=== PATIENT | male | born 1965 | race Hispanic/Latino ===

== ENCOUNTER 2020-01-09 11:49 | Emergency (ER) | payer OTHER, SELFPAY ==
[2020-01-09] MEDS ORDERED: Ketorolac Tromethamine 30 MG/ML VIAL ONE (13:08)
[2020-01-09 13:10] LABS: Bilirubin Small (Negative); Blood, Urine Trace (Negative); Clarity Clear (Clear); Glucose, Urine (Dipstick) Negative (Negative); Leukocyte Negative (Negative); Nitrite Negative (Negative); Protein, Urine (Dipstick) Negative (Neg-Trace)
[2020-01-09 13:16] LABS: Bacteria/HPF Rare-Few HPF (None Seen); RBC/HPF 0-3 HPF (0-3); Squamous Epithelial 0-3 HPF (0-3); WBC/HPF 0-3 HPF (0-3)
[2020-01-09 13:24] LABS: #Basophils 0.2 thou/uL (0.0-0.2); #Eosinphils 0.1 thou/uL (0.0-0.7); #Monocytes 1.6 thou/uL (0.11-0.59); #Neutrophils 11.4 thou/uL (1.40-6.50); %Basophils 1.6 % (0.0-1.0); %Eosinophils 0.6 % (0.0-10.0); %Lymphocytes 12.9 % (21.0-51.0); %Monocytes 10.7 % (0.0-10.0); %Neutrophils 74.1 % (42.0-75.0); Hemoglobin 15.6 g/dL (14.0-18.0); Mean Corpuscular HGB CONC 32.1 g/dL (32.0-36.0); Mean Corpuscular Volume 96.5 fL (78.0-98.0); Mean Platelet Volume 7.1 fL (7.4-10.4); Platelet Count 343 thou/uL (130-400); RBC Distribution Width 10.5 % (11.5-14.5); Red Blood Cell (RBC) Count 5.05 mill/uL (4.70-6.10); White Blood Cell (WBC) Count 15.3 thou/uL (4.8-10.8)
[2020-01-09 13:43] LABS: ALT (SGPT) 13 U/L (8-55); AST (SGOT) 18 U/L (5-34); Albumin 3.7 g/dL (3.5-5.0); Alkaline Phosphatase 77 U/L (40-110); Anion Gap 16 mmol/L (10-20); BUN (Urea Nitrogen) 6 mg/dL (8.4-25.7); Bilirubin, Total 0.4 mg/dL (0.2-1.2); Calc. Creatinine Clearance 0 mL/min (70-130); Calcium 9.3 mg/dL (7.8-10.44); Carbon Dioxide 24 mmol/L (22-29); Chloride 101 mmol/L (98-107); Estimated GFR-MDRD Greater than 90; Globulin 3.6 g/dL (2.4-3.5); Glucose 95 mg/dL (70-105); Lipase 9 U/L (8-78); Protein, Total 7.3 g/dL (6.0-8.3); Sodium 137 mmol/L (136-145)
[2020-01-09] MEDS ORDERED: metroNIDAZOLE 500 MG/100 ML BAG ONE (13:58)
[2020-01-09] MEDS ORDERED: Piperacillin/Tazobactam 3.375 GM VIAL ONE (13:58)
[2020-01-09] MEDS ORDERED: Sodium Chloride 0.9% 100 ML ONE (13:58)
--- NOTE | 2020-01-09 14:04 | CT ---
CT ABDOMEN AND PELVIS WITHOUT IV CONTRAST: 01/09/20 INDICATIONS: Right abdominal pain. Question urinary calculus. FINDINGS: Lung bases clear. Liver, spleen and pancreas unremarkable. Stomach and duodenum unremarkable. Adrenal glands and kidneys unremarkable. No evidence of hydronephrosis. No evidence of hydronephrosis or urinary calculus. Small bowel loops are normal caliber. The appendix is unremarkable and is filled with gas. Review of the colon reveals scattered diverticula with numerous small diverticula in the left colon a nd sigmoid. There is inflammatory process involving the left lower quadrant and left pelvis. There is extraluminal gas within this inflammatory process which measures up to 7 to 8 cm width in the axial plane. This abuts the wall of the sigmoid in this region and findings would suggest a confined perfor ation and abscess formation. Diverticulitis would be the suspected etiology. Urinary bladder is contracted. IMPRESSION: Inflammatory process in the left lower quadrant and left pelvis with extraluminal gas collection with in this inflammatory process which measures 7 to 8 cm width in the axial plane. Confined perforation with abscess formation is suspected. Findings relayed to the Emergency physician. Code CR
[2020-01-09] MEDS ORDERED: Levofloxacin 500 mg/D5W 100 ml Premix Bag ONE (14:23)
== END 2020-01-09 14:18 | disposition short-term general hospital (02) ==
LOC: MADERS 11:49
DX: K57.32 Diverticulitis of large intestine without perforation or abscess without bleeding (principal); F17.210 Nicotine dependence, cigarettes, uncomplicated
CPT/HCPCS: 74176; 80053; 81003; 81015; 83605; 83690; 85025; 96365; 96367; 96375; J1885; J1956; J2543; J3490